=== PATIENT | female | born 1945 | race Caucasian/White ===

== ENCOUNTER 2019-02-11 19:33 | Emergency (ER) | payer MEDICARE, OTHER ==
[~2019-02-11] VITALS: Ht 154.9 cm; Wt 73.0 kg
[2019-02-11 19:35] VITALS: Ht 154.9 cm; Wt 73.0 kg
[2019-02-11] MEDS ORDERED: SOD CHLORIDE 0.9% 500 ML IV STA (21:00)
[2019-02-11] MEDS ORDERED: POTASSIUM CHLORIDE 100 ML IVPB ONE (23:30)
--- NOTE | 2019-02-12 01:34 | ERD ---
ER Documentation Chief Complaint Chief Complaint pt took losartan without checking bp first, c/o leg/arm pain HPI This is a 73-year-old female comes in saying that her arms and legs are after she took losartan. She denies any fevers chills nausea vomiting chest pain. Denies any other current issues. ROS All systems reviewed and are negative except as per history of present illness. Allergies Allergies: Coded Allergies: No Known Allergy (Unverified , 02/11/19) PMhx/Soc History of Surgery: Yes (heart: aorta and mitral pig valves) Anesthesia Reaction: No Hx Neurological Disorder: No Hx Respiratory Disorders: No Hx Cardiac Disorders: Yes (HTN, HLD) Hx Psychiatric Problems: Yes (depression) Hx Miscellaneous Medical Probl: No Hx Alcohol Use: No Hx Substance Use: No Hx Tobacco Use: No Smoking Status: Never smoker Physical Exam Vitals Vital Signs Date Temp Pulse Resp B/P (MAP) Pulse Ox O2 O2 Flow FiO2 Time Delivery Rate 02/11/19 97.7 101 19 151/78 98 Room Air 23:10 (102) 02/11/19 98.8 100 16 133/81 99 19:35 (98) Physical Exam Const: No acute distress Head: Atraumatic Eyes: Normal Conjunctiva ENT: Normal External Ears, Nose and Mouth. Neck: Full range of motion. No meningismus. Resp: Clear to auscultation bilaterally Cardio: Regular rate and rhythm, no murmurs Abd: Soft, non tender, non distended. Normal bowel sounds Skin: No petechiae or rashes Back: No midline or flank tenderness Ext: No cyanosis, or edema Neur: Awake and alert Psych: Normal Mood and Affect Result Diagram: 02/11/19212902/11/192129 Results 24 hrs Laboratory Tests Test 02/11/19 21:30 02/11/19 22:16 White Blood Count 8.7 10^3/ul Red Blood Count 4.25 10^6/ul Hemoglobin 12.5 g/dl Hematocrit 38.5 % Mean Corpuscular Volume 90.6 fl Mean Corpuscular Hemoglobin 29.4 pg Mean Corpuscular Hemoglobin Concent 32.5 g/dl Red Cell Distribution Width 15.1 % Platelet Count 202 10^3/UL Mean Platelet Volume 10.0 fl Immature Granulocytes % 0.500 % Neutrophils % 72.0 % Lymphocytes % 16.6 % Monocytes % 9.9 % Eosinophils % 0.7 % Basophils % 0.3 % Nucleated Red Blood Cells % 0.0 /100WBC Immature Granulocytes # 0.040 10^3/ul Neutrophils # 6.2 10^3/ul Lymphocytes # 1.4 10^3/ul Monocytes # 0.9 10^3/ul Eosinophils # 0.1 10^3/ul Basophils # 0.0 10^3/ul Nucleated Red Blood Cells # 0.0 10^3/ul Sodium Level 141 mmol/L Potassium Level 3.0 mmol/L Chloride Level 105 mmol/L Carbon Dioxide Level 27 mmol/L Anion Gap 9 Blood Urea Nitrogen 20 mg/dl Creatinine 0.89 mg/dl Est Glomerular Filtrat Rate mL/min mL/min Glucose Level 86 mg/dl Calcium Level 9.2 mg/dl Total Bilirubin 0.8 mg/dl Direct Bilirubin 0.00 mg/dl Indirect Bilirubin 0.8 mg/dl Aspartate Amino Transf (AST/SGOT) 30 IU/L Alanine Aminotransferase (ALT/SGPT) 27 IU/L Alkaline Phosphatase 107 IU/L Total Protein 7.0 g/dl Albumin 3.7 g/dl Globulin 3.30 g/dl Albumin/Globulin Ratio 1.12 Lipase 208 U/L Bedside Urine pH (LAB) 7.0 Bedside Urine Protein (LAB) 1+ Bedside Urine Glucose (UA) Negative Bedside Urine Ketones (LAB) Negative Bedside Urine Blood Trace-intact Bedside Urine Nitrite (LAB) Negative Bedside Urine Leukocyte Esterase (L 1+ Current Medications Medications Dose Sig/Ashlyn Start Time Status Last (Trade) Ordered Route PRN Stop Time Admin Dose Reason Admin Sodium 500 ml @ Q1H STAT 02/11/19 DC 02/11/19 Chloride 500 mls/hr IV 21:00 02/11/19 21:40 21:59 Potassium 100 ml @ ONCE ONCE 02/11/19 DC 02/11/19 Chloride 50 mls/hr IVPB 23:30 23:43 02/12/19 01:29 Procedures/MDM Medical decision makin female myalgias. She is been hydrated and she is now pain-free. She is stable for outpatient management. Departure Diagnosis: Primary Impression: Myalgia Condition: Stable Patient Instructions: Myalgias BO SHAY Feb 12, 2019 01:34
--- NOTE | 2019-02-12 10:14 | QN ---
Documentation Comment Observation Note: Time: 4 hours Family Hx: Negative for diabetes Evaluation: Multiple exams showed improving symptoms and no evidence of clinical decompensation. AIDAN RUFFIN MD Feb 12, 2019 10:14
[2019-02-12 15:05] VITALS: BP 103/72; PULSE 97; RESP 19
== END 2019-02-12 16:05 | disposition home or self-care (01) ==
LOC: E/R 19:33
DX: M79.18 Myalgia, other site (principal); I10 Essential (primary) hypertension
CPT/HCPCS: 36415; 80053; 81003; 83690; 85025; 96374; 99284; J3480; J7040